=== PATIENT | female | born 2000 | race Two or more races ===

== ENCOUNTER 2021-08-18 15:45 | Emergency (ER) | payer SELFPAY ==
[~2021-08-18] VITALS: Ht 160 cm; Wt 54.4 kg
[2021-08-18 16:06] VITALS: BP 122/85
[2021-08-18 16:46] LABS: Urine WBC None Seen /hpf (0 - 5)
[2021-08-18 16:59] LABS: Urine Bacteria NONE SEEN /hpf (None Seen); Urine Blood 3+ /uL (Negative); Urine Specific Gravity 1.017 (1.001-1.035)
== END 2021-08-18 18:30 | disposition home or self-care (01) ==
LOC: ER 15:45
DX: O20.8 Other hemorrhage in early pregnancy (principal); Z88.0 Allergy status to penicillin; Z3A.14 14 weeks gestation of pregnancy
CPT/HCPCS: 36415; 76805; 81001; 84702